=== PATIENT | male | born 1980 | race Caucasian/White ===

== ENCOUNTER 2023-09-05 20:10 | Emergency (ER) | payer BC ==
[2023-09-05 21:59] LABS: BASOPHILS ABSOLUTE AUTO 0.05 K/uL (0.00-0.20); BASOPHILS PERCENT AUTO 0.3 % (0.0-1.0); EOSINOPHILS ABSOLUTE AUTO 0.06 K/uL (0.00-0.45); EOSINOPHILS PERCENT AUTO 0.4 % (0.0-6.0); HEMATOCRIT 47.8 % (42.0-52.0); HEMOGLOBIN 16.9 g/dL (14.0-18.0); IMMATURE GRAN ABSOLUTE AUTO 0.06 K/uL (0.00-0.05); IMMATURE GRAN PERCENT AUTO 0.4 % (0.0-0.4); LYMPHOCYTES ABSOLUTE AUTO 2.05 K/uL (1.00-4.80); LYMPHOCYTES PERCENT AUTO 13.2 % (24.0-44.0); MEAN CORPUSCULAR HEMOGLOBIN 33.1 pg (28.0-32.0); MEAN CORPUSCULAR HGB CONC 35.4 g/dL (32.0-36.0); MEAN CORPUSCULAR VOLUME 93.7 fL (83.0-99.0); MEAN PLATELET VOLUME 9.9 fL (9.4-12.4); MONOCYTES PERCENT AUTO 5.8 % (0.0-8.0); NEUTROPHILS ABSOLUTE AUTO 12.43 K/uL (1.80-7.70); NEUTROPHILS PERCENT AUTO 79.9 % (41.0-71.0); PLATELET COUNT,PLT 314 K/uL (150-400); WHITE BLOOD CELL COUNT,WBC 15.55 K/uL (3.9-11.3)
[2023-09-05] MEDS: Diphtheria,Pertussis(Acell),Tetanus Vaccine 0.5 ML Syringe IM ONE (22:02)
[2023-09-05] MEDS: Sodium Chloride 0.9% 2.5 ML Syringe FLUSH PRN (22:03)
[2023-09-05] MEDS: ceFAZolin 2 GM in Sodium Chloride 0.9% 50 ML IV ONE (22:03)
[2023-09-05] MEDS: Sodium Chloride 0.9% 10 ML Syringe FLUSH PRN (22:03)
[2023-09-05 22:21] LABS: A/G RATIO 1.1 (0.9-1.6); ALBUMIN 4.2 g/dL (3.4-5.0); BILIRUBIN TOTAL 0.2 mg/dL (0.2-1.0); CALCIUM 9.4 mg/dL (8.5-10.1); CARBON DIOXIDE,CO2 30.2 mmol/L (21.0-32.0); CREATININE 1.3 mg/dL (0.8-1.3); EST CRCL DRUG DOSING (CG) 71.62 mL/min; POTASSIUM,K 4.1 mmol/L (3.5-5.1); PROTEIN TOTAL,TP 8.1 g/dL (6.4-8.2)
[2023-09-05] MEDS: Lidocaine 1% 10 ML MDV INJECT ONE (22:33)
[2023-09-05] MEDS: Bupivacaine 0.5% 10 ML SDV INJECT ONE (22:33)
== END 2023-09-06 00:08 | disposition home or self-care (01) ==
LOC: MW.ED 20:10
DX: S62.521B Displaced fracture of distal phalanx of right thumb, initial encounter for open fracture (principal); Z79.899 Other long term (current) drug therapy; Z75.8 Other problems related to medical facilities and other health care; Z23 Encounter for immunization; W22.8XXA Striking against or struck by other objects, initial encounter
CPT/HCPCS: 12002; 36415; 73140; 80053; 85025; 90471; 90715; 96365; 99283; J0665; J0690; J3490